=== PATIENT | male | born 1995 | race Caucasian/White ===

== ENCOUNTER 2018-08-17 17:55 | Observation (INO) | payer OTHER ==
[2018-08-17 18:03] VITALS: BMI 30.2
[2018-08-17] MEDS ORDERED: SODIUM CHLORIDE 0.9% 500 ML INFUS.BAG IV ONE (20:18)
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
[2018-08-17 20:54] LABS: BASO % 0.3 % (0-2.0); EOS % 0.1 % (0-4.5); HEMATOCRIT 43.4 % (35.4-49); HEMOGLOBIN 14.8 GM/dL (11.7-16.9); MCH 31.1 pg (25.7-33.7); MCHC 34.2 g/dl (32.0-35.9); MEAN CELL VOLUME 90.9 fl (80-96); MEAN PLT VOLUME 8.4 fl (7.5-11.1); NEUT % 77.6 % (42.8-82.8); PLATELET COUNT 247 K/MM3 (134-434); RBC 4.78 M/mm3 (4.00-5.60); RDW 13.1 % (11.9-15.9); WHITE BLOOD COUNT 10.6 K/mm3 (4.0-10.0)
[2018-08-17 21:15] LABS: ALBUMIN 4.4 g/dl (3.4-5.0); ALK PHOS 88 U/L (45-117); ANION GAP 8 MMOL/L (8-16); BILIRUBIN,TOTAL 0.9 mg/dL (0.2-1); BLOOD UREA NITROGEN 24 mg/dL (7-18); CALCIUM 8.9 mg/dL (8.5-10.1); CHLORIDE 105 mmol/L (98-107); CO2 25 mmol/L (21-32); CREATININE 2.6 mg/dL (0.55-1.3); GLUCOSE,RANDOM 118 mg/dL (74-106); LIPASE 118 U/L (73-393); POTASSIUM 4.6 mmol/L (3.5-5.1); SGOT/AST 17 U/L (15-37); SGPT/ALT 34 U/L (13-61); SODIUM 138 mmol/L (136-145); TOT PROT 7.8 g/dl (6.4-8.2)
[2018-08-17] MEDS ORDERED: SODIUM CHLORIDE 1,000 ML IV SCH (23:00)
[2018-08-18 01:25] LABS: EPI CELLS 0.5 /HPF (0-5/HPF); HYALINE CASTS 3 /hpf (0-8); PH,URINE 5.5 (5.0-8.0); URINE APPEARANCE CLEAR; URINE BILIRUBIN NEGATIVE (NEGATIVE); URINE COLOR YELLOW; URINE GLUCOSE (UA) NEGATIVE (NEGATIVE); URINE KETONE TRACE (NEGATIVE); URINE LEUK ESTERASE NEGATIVE (NEGATIVE); URINE NITRITE NEGATIVE (NEGATIVE); URINE PROTEIN NEGATIVE (NEGATIVE); URINE RBC 2 /hpf (0-4); URINE WBC 4 /hpf (0-5)
[2018-08-18 01:42] LABS: ANION GAP 5 MMOL/L (8-16); BLOOD UREA NITROGEN 21 mg/dL (7-18); CALCIUM 8.1 mg/dL (8.5-10.1); CHLORIDE 110 mmol/L (98-107); CO2 24 mmol/L (21-32); CREATININE 2.2 mg/dL (0.55-1.3); GLUCOSE,RANDOM 108 mg/dL (74-106); POTASSIUM 4.1 mmol/L (3.5-5.1); SODIUM 139 mmol/L (136-145)
[2018-08-18] MEDS ORDERED: SODIUM CHLORIDE 1,000 ML IV STA (01:45)
[2018-08-18] MEDS ORDERED: SODIUM CHLORIDE 0.9% 500 ML INFUS.BAG IV ONE (03:33)
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
[2018-08-18 06:21] LABS: BASO % 0.2 % (0-2.0); EOS % 0.2 % (0-4.5); HEMATOCRIT 39.8 % (35.4-49); HEMOGLOBIN 13.7 GM/dL (11.7-16.9); LYMPH % 19.8 % (8-40); MCHC 34.4 g/dl (32.0-35.9); MEAN CELL VOLUME 90.2 fl (80-96); MEAN PLT VOLUME 8.5 fl (7.5-11.1); MONO % 9.4 % (3.8-10.2); NEUT % 70.4 % (42.8-82.8); PLATELET COUNT 223 K/MM3 (134-434); RBC 4.41 M/mm3 (4.00-5.60); RDW 13.1 % (11.9-15.9)
[2018-08-18 06:22] VITALS: BP 139/95; PULSE 57; TEMP 97.9
--- NOTE | 2018-08-18 06:36 | DS ---
Physical Exam: SUBJECTIVE: Shortly after admission, patient decided to leave AMA. Risks of signing out AMA explained to pt in detail including but not limited to kidney failure and . OBJECTIVE: Vital Signs Period Temp Pulse Resp BP Sys/Reeves Pulse Ox Last 24 Hr 97.9 F-99.3 F 57-74 18-18 133-159/88-102 98-99 PHYSICAL EXAM GENERAL: AAOx3 HEAD: Normal with no signs of trauma. EYES: EOMI Sclera Clear EARS, NOSE, THROAT: MMM NECK: Supple LUNGS: CTAB. HEART: RRR Nl S1S2 ABDOMEN: TTP LUQ. No CVA tenderness MUSCULOSKELETAL: FROM LOWER EXTREMITIES: No CCE NEUROLOGICAL: Cranial nerves II-XII intact. Normal speech. PSYCHIATRIC: Cooperative. Good eye contact. Appropriate mood and affect. SKIN: Warm, dry, normal turgor, no rashes or lesions noted, normal capillary refill. LABS Laboratory Results - last 24 hr 08/17/18 08/17/18 08/18/18 20:32 20:32 00:58 WBC 10.6 H RBC 4.78 Hgb 14.8 Hct 43.4 MCV 90.9 MCH 31.1 MCHC 34.2 RDW 13.1 Plt Count 247 D MPV 8.4 Absolute Neuts (auto) 8.2 H Neutrophils % 77.6 D Lymphocytes % 14.0 D Monocytes % 8.0 Eosinophils % 0.1 Basophils % 0.3 Nucleated RBC % 0 Sodium 138 Potassium 4.6 Chloride 105 Carbon Dioxide 25 Anion Gap 8 BUN 24 H Creatinine 2.6 H Creat Clearance w eGFR 31.02 Random Glucose 118 H Calcium 8.9 Total Bilirubin 0.9 AST 17 ALT 34 Alkaline Phosphatase 88 Creatine Kinase 74 Total Protein 7.8 Albumin 4.4 Lipase 118 Urine Color Yellow Urine Appearance Clear Urine pH 5.5 Ur Specific [place] 1.007 L Urine Protein Negative Urine Glucose (UA) Negative Urine Ketones Trace H Urine Blood Trace Urine Nitrite Negative Urine Bilirubin Negative Urine Urobilinogen 1.0 Ur Leukocyte Esterase Negative Urine WBC (Auto) 4 Urine RBC (Auto) 2 Urine Casts (Auto) 3 U Epithel Cells (Auto) 0.5 Urine Bacteria (Auto) 2.0 Ur Random Sodium Urine Creatinine 08/18/18 08/18/18 08/18/18 01:00 03:50 03:50 WBC RBC Hgb Hct MCV MCH MCHC RDW Plt Count MPV Absolute Neuts (auto) Neutrophils % Lymphocytes % Monocytes % Eosinophils % Basophils % Nucleated RBC % Sodium 139 Potassium 4.1 Chloride 110 H Carbon Dioxide 24 Anion Gap 5 L BUN 21 H Creatinine 2.2 H Creat Clearance w eGFR 37.62 Random Glucose 108 H Calcium 8.1 L Total Bilirubin AST ALT Alkaline Phosphatase Creatine Kinase 69 Total Protein Albumin Lipase Urine Color Urine Appearance Urine pH Ur Specific [place] Urine Protein Urine Glucose (UA) Urine Ketones Urine Blood Urine Nitrite Urine Bilirubin Urine Urobilinogen Ur Leukocyte Esterase Urine WBC (Auto) Urine RBC (Auto) Urine Casts (Auto) U Epithel Cells (Auto) Urine Bacteria (Auto) Ur Random Sodium 55 Urine Creatinine 46.0 HOSPITAL COURSE: Date of Admission:08/17/18 23 y/o gentleman with no significant past medical history who presented to [facility] due to abdominal pain as well as lower back pain. Found to have Cr of 2.6 , was hydrated with IVF. Signed out AMA while in ED shortly after being admitted. Date of Discharge: 08/18/18 Minutes to complete discharge: 35 Discharge Summary Reason For Visit: NOT FEELING HIMSELF Current Active Problems Renal insufficiency (Acute) Vomiting (Acute) Condition: Guarded - Instructions Disposition: AGAINST MEDICAL ADVICE - Home Medications Comprehensive Discharge Medication List: Ambulatory Orders NK [No Known Home Medication] 08/17/18 This patient is new to me today: Yes Date on this admission: 08/18/18 Emergency Visit: Yes Care time: The patient presented to the Emergency Department on the above date and was hospitalized for further evaluation of their emergent condition. Critical Care patient: No - Discharge Referral Referred to [facility] Med P.C.: No
[2018-08-18 06:42] LABS: INR 1.08 (0.83-1.09); PROTHROMBIN TIME (PATIENT) 12.7 SEC (9.7-13.0)
[2018-08-18 06:44] LABS: ACTIVATED PTT 34.5 SECONDS (25.2-36.5)
[2018-08-18 06:48] LABS: ALBUMIN 3.6 g/dl (3.4-5.0); ALK PHOS 74 U/L (45-117); ANION GAP 7 MMOL/L (8-16); BILIRUBIN,TOTAL 1.1 mg/dL (0.2-1); BLOOD UREA NITROGEN 18 mg/dL (7-18); CALCIUM 8.4 mg/dL (8.5-10.1); CHLORIDE 111 mmol/L (98-107); CO2 23 mmol/L (21-32); GLUCOSE,RANDOM 112 mg/dL (74-106); MAGNESIUM 2.3 mg/dL (1.8-2.4); POTASSIUM 4.4 mmol/L (3.5-5.1); SGOT/AST 14 U/L (15-37); SGPT/ALT 28 U/L (13-61); SODIUM 141 mmol/L (136-145); TOT PROT 6.5 g/dl (6.4-8.2)
--- NOTE | 2018-08-18 10:26 | EKG ---
Test Reason : Blood Pressure : / mmHG Vent. Rate : 066 BPM Atrial Rate : 066 BPM P-R Int : 182 ms QRS Dur : 096 ms QT Int : 352 ms P-R-T Axes : 060 055 038 degrees QTc Int : 369 ms NORMAL SINUS RHYTHM WITH SINUS ARRHYTHMIA NORMAL ECG WHEN COMPARED WITH ECG OF 10-JUN-2014 20:57, QT HAS SHORTENED Confirmed by VIRIDIANA CROSS MD ([id number]) on 08/18/2018 10:26:29 AM Referred By: Confirmed By:VIRIDIANA CROSS MD
== END 2018-08-18 06:37 | disposition left against medical advice (07) ==
LOC: JER 17:55 → JERBED 08-18 00:15 → JER 08-18 06:37
PROVIDERS: ADMIT Internal Medicine; ATTEND Internal Medicine
PROC: 3E0337Z Introduction of Electrolytic and Water Balance Substance into Peripheral Vein, Percutaneous Approach (ICD-10-PCS; principal; 2018-08-18)
DX: N28.9 Disorder of kidney and ureter, unspecified (principal); N17.9 Acute kidney failure, unspecified; R11.10 Vomiting, unspecified; F17.210 Nicotine dependence, cigarettes, uncomplicated; Y04.0XXA Assault by unarmed brawl or fight, initial encounter; W18.39XA Other fall on same level, initial encounter; Y93.9 Activity, unspecified; Y92.9 Unspecified place or not applicable
CPT/HCPCS: 36415; 70450-TC; 70486-TC; 72131-TC; 74176-TC; 80048; 80053; 81003; 82550; 82570; 83690; 83735; 84100; 84300; 84484; 85025; 85610; 85730; 93005; 93010; 96360; 99284-25; G0378; J7030